=== PATIENT | male | born 1980 | race Caucasian/White ===

== ENCOUNTER 2018-08-29 12:52 | Emergency (ER) | payer BC, OTHER ==
[~2018-08-29] VITALS: Ht 165.1 cm; Wt 58.1 kg
[~2018-08-29 12:52] MED LIST: CEPH-443 PO; POLY10DR BOTH EYES
[2018-08-29 12:59] VITALS: Ht 165.1 cm; Wt 58.1 kg
--- NOTE | 2018-08-29 17:12 | ERD ---
ER Documentation Chief Complaint Chief Complaint Complains of dizziness x 2 days HPI 38-year-old male presents with history of dizziness, chest pain, and left arm numbness which occurred yesterday. Patient states that he felt lightheaded and then his left arm went numb and then he started feeling some chest pain and all these symptoms resolved after short period yesterday. States that he currently has a moderate intermittent headache and most of the numbness in his arm has gone away. He is not currently dizzy. He denies any current weakness, chest pain, hemoptysis, leg swelling or redness, recent travel or immobility, dyspnea, other numbness, fevers, chills, neck stiffness, nausea, vomiting, diarrhea. Has not taken any treatments. Past medical history of hypertension. No allergies. ROS All systems reviewed and are negative except as per history of present illness. Medications Home Meds Active Scripts Ibuprofen* (Motrin*) 600 Mg Tab, 600 MG PO Q6 for chest wall pain, #30 TAB Prov:ELLIOTT ZUÑIGA 08/29/18 Meclizine Hcl* (Antivert*) 12.5 Mg Tab, 12.5 MG PO Q6H PRN for DIZZINESS, #20 TAB Prov:ELLIOTT ZUÑIGA 08/29/18 Polymyxin/Trimethoprim* (Polytrim* Eye Drops) 10 Ml Drops, 1 DROP BOTH EYES QID, #1 EA Prov:CRISTI HERRERA PA-C 07/26/15 Cephalexin* (Keflex*) 500 Mg Capsule, 500 MG PO QID for 7 Days, CAP Prov:CRISTI HERRERA PA-C 07/26/15 Allergies Allergies: Coded Allergies: No Known Allergy (Unverified , 12/24/13) PMhx/Soc History of Surgery: No Anesthesia Reaction: No Hx Neurological Disorder: No Hx Respiratory Disorders: No Hx Cardiac Disorders: No Hx Psychiatric Problems: No Hx Miscellaneous Medical Probl: No Hx Alcohol Use: No Hx Substance Use: No Hx Tobacco Use: No FmHx Family History: No diabetes, No coronary disease, No other Physical Exam Vitals Vital Signs Date Temp Pulse Resp B/P (MAP) Pulse Ox O2 O2 Flow FiO2 Time Delivery Rate 08/29/18 97.7 58 18 114/77 98 Room Air 18:57 (89) 08/29/18 97.5 63 20 122/80 99 12:59 (94) Physical Exam Const: No acute distress Head: Atraumatic Eyes: Normal Conjunctiva. PERRLA. EOMs intact. ENT: Normal External Ears, Nose and Mouth. TMs pearly hurst. No hematotymp adrian. Neck: Full range of motion. No meningismus. Resp: Clear to auscultation bilaterally Cardio: Regular rate and rhythm, no murmurs Abd: Soft, non tender, non distended. Normal bowel sounds Skin: No petechiae or rashes Back: No midline or flank tenderness Ext: No cyanosis, or edema Neur: Awake and alert Psych: Normal Mood and Affect Neuro: M/S: Alert and oriented Face: EOMI, face and pharynx with normal sensation and function Motor: Normal strength throughout Sensation: Normal sensation throughout Speech: Normal Cerebel: Normal coordination Normal gait Normal finger to nose DTR: 2+ and symmetric upper/lower extremities Result Diagram: 08/29/18 1702 08/29/18 1702 Results 24 hrs Laboratory Tests Test 08/29/18 17:02 08/29/18 17:06 White Blood Count 6.9 10^3/ul Red Blood Count 5.31 10^6/ul Hemoglobin 14.8 g/dl Hematocrit 44.7 % Mean Corpuscular Volume 84.2 fl Mean Corpuscular Hemoglobin 27.9 pg Mean Corpuscular Hemoglobin Concent 33.1 g/dl Red Cell Distribution Width 12.3 % Platelet Count 269 10^3/UL Mean Platelet Volume 9.2 fl Immature Granulocytes % 0.300 % Neutrophils % 63.9 % Lymphocytes % 27.6 % Monocytes % 5.4 % Eosinophils % 1.9 % Basophils % 0.9 % Nucleated Red Blood Cells % 0.0 /100WBC Immature Granulocytes # 0.020 10^3/ul Neutrophils # 4.4 10^3/ul Lymphocytes # 1.9 10^3/ul Monocytes # 0.4 10^3/ul Eosinophils # 0.1 10^3/ul Basophils # 0.1 10^3/ul Nucleated Red Blood Cells # 0.0 10^3/ul Sodium Level 141 mmol/L Potassium Level 3.8 mmol/L Chloride Level 102 mmol/L Carbon Dioxide Level 28 mmol/L Anion Gap 11 Blood Urea Nitrogen 11 mg/dl Creatinine 0.63 mg/dl Est Glomerular Filtrat Rate mL/min > 60 mL/min Glucose Level 90 mg/dl Calcium Level 9.6 mg/dl Total Bilirubin 0.5 mg/dl Direct Bilirubin 0.00 mg/dl Indirect Bilirubin 0.5 mg/dl Aspartate Amino Transf (AST/SGOT) 42 IU/L Alanine Aminotransferase (ALT/SGPT) 28 IU/L Alkaline Phosphatase 75 IU/L Troponin I < 0.012 ng/ml Total Protein 8.4 g/dl Albumin 4.7 g/dl Globulin 3.70 g/dl Albumin/Globulin Ratio 1.27 Bedside Urine pH (LAB) 7.5 Bedside Urine Protein (LAB) Negative Bedside Urine Glucose (UA) Negative Bedside Urine Ketones (LAB) Negative Bedside Urine Blood Negative Bedside Urine Nitrite (LAB) Negative Bedside Urine Leukocyte Esterase (L Negative Procedures/MDM DIAGNOSTIC IMAGING REPORT Patient: JEREMY OLIVEIRA : 1980 Age: 38 Sex: M MR #: [id number] DOS: 08/29/18 1651 Ordering MD: ELLIOTT ZUÑIGA Location: [facility] Room/Bed: PROCEDURE: XR Chest AP portable CLINICAL INDICATION: Chest pain TECHNIQUE: An AP portable radiograph of the chest was submitted. COMPARISON: None. FINDINGS: Support Hardware: None Cardiovascular: The cardiovascular silhouette appears unremarkable. Lung Lemon: A 4.5 mm nodular density projects to the right mid lung zone. A poorly defined 5 mm nodular density projects to the left mid lung zone. No infiltrate is identified. Pleural Spaces: No pneumothorax or pleural effusion is identified. Osseous Structures: The osseous structures appear intact. Soft Tissues: The soft tissues appear unremarkable. IMPRESSION: 1. A 4.5 mm nodule projects to the right mid lung zone and a 5 mm poorly defined nodular density projects to the left mid lung zone. If the patient is low risk, no routine follow-up is required. 2. Otherwise, unremarkable chest. Fleischner criteria: Single Solid Nodule: <6mm(<100mm3): Low risk: No f/u. High risk: Optional CT at 12 months. Certain pts at high risk with suspicious nodule morphology, upper lobe location, or both may warrant 12 mo f/u. 6-8mm(100-250mm3): Low risk: CT at 6-[address] at 18-24 mos. High risk: CT at 6-[address] at 18-24 mos. >8mm(>250mm3): Consider CT, PET/CT, or tissue sampling at 3 mos. Multiple Solid Nodules: Use most susp nod to guide mgmt. F/u intervals may vary according to size/risk <6mm(<100mm3): Low risk: No f/u. High risk: Optional CT at 12 months. 6-8mm(100-250mm3): Low risk: CT at 3-[address] at 18-24 mos. High risk: CT at 3-[address] at 18-24 mos. >8mm(>250mm3): Low risk: CT at 3-[address] at 18-24 mos. High risk: CT at 3-[address] at 18-24 mos. Single Subsolid Nodule: Ground Glass: In certain susp nods <6mm, consider 2 and 4 yr f/u. If solid component increases or growth develops, consider resection. Otherwise: <6mm(<100mm3): Low risk: No f/u. High risk: CT at 6-12 mos to confirm persistence, then CT every 2 yrs until 5 yrs. Part Solid: Must be >or=6mm to be part solid. CT at 3-6 mos to confirm persistence. If unchanged and solid component still <6mm, do annual CT for 5 yrs. If solid component >=6mm, consider highly suspicious. Multiple Subsolid Nodules: <6mm(<100mm3): CT at 3-6 mos. If stable, consider CT at 2 and 4 yrs. Mult <6mm pure ground glass nods usually benign but consider f/u in selected high risk pts at 2 and 4 yrs. >=6mm(>100mm3): CT at 3-6 mos. Subseq management based on most susp nodule. Physician Leanne Date Time Electronically viewed and signed by Physician Leanne on 08/29/2018 17:31 RH/ CC: ELLIOTT ZUÑIGA [id number] EKG: Rate/Rhythm: Normal Sinus Rhythm QRS, ST, T-waves: No changes consistent w/ acute ischemia Impression: No evidence of ischemia or arrhythmia 38-year-old male presents with history of dizziness, chest pain, and left arm numbness which occurred yesterday. Patient states that he felt lightheaded and then his left arm went numb and then he started feeling some chest pain and all these symptoms resolved after short period yesterday. States that he currently has a moderate intermittent headache and most of the numbness in his arm has gone away. He is not currently dizzy. He denies any current weakness, chest pain, hemoptysis, leg swelling or redness, recent travel or immobility, dyspnea, other numbness, fevers, chills, neck stiffness, nausea, vomiting, diarrhea. Has not taken any treatments. Past medical history of hypertension. No allergies. EKG was ordered and was within normal limits. Chest x-ray was ordered and showed some small nods. When I notified patient of this and told him he needed to follow this up with his primary he had stated that he was already aware of and had a recent MRI which showed no malignancy. Neuro exam was within normal limits showing no focal neurological deficits. Therefore a very low suspicion for any type of CVA or intracranial mass. I have low suspicion for acute coronary syndrome, pulmonary embolism, aortic dissection, AAA, pneumothorax, esophageal rupture, pericarditis, myocarditis, or pneumonia based on EKG, imagi ng, labs, patient history and exam. Patient discharged with strict ER precautions. Patient advised to follow up with PMD. All questions answered at discharge. 3 Departure Diagnosis: Primary Impression: Dizziness Additional Impression: Chest wall pain Condition: Stable ELLIOTT ZUÑIGA Aug 29, 2018 17:12
[2018-08-29] MEDS ORDERED: MECL12.574 PO (18:45)
[2018-08-29] MEDS ORDERED: IBUP-1542 PO (18:45)
[2018-08-29 18:57] VITALS: BP 114/77; PULSE 58; RESP 18
== END 2018-08-29 19:00 | disposition home or self-care (01) ==
LOC: FTE 12:52
DX: R42 Dizziness and giddiness (principal); R07.89 Other chest pain
CPT/HCPCS: 36415; 71045; 80053; 81003; 84484; 85025; 93005